=== PATIENT | female | born 1980 | race Caucasian/White ===

== ENCOUNTER → 2020-12-23 | Outpatient (CLI) | payer BC ==
[2020-12-23 13:47] VITALS: BP 135/85; PULSE 86; TEMP 98.3; BMI 52.9
--- NOTE | 2020-12-23 14:15 | P.HPBAR ---
Bariatric H&P - History & Physicial H&P Date: 12/23/20 History & Physicial: Visit/CC: initial clinic visit Patient initial contact: Initial weight: Initial weight in pounds: Height: 5 ft 5 in Initial BMI: Last weight: Current weight: 144.242 kg Current weight in pounds: 318.00 Current BMI: 52.9 [place] body weight (based on NIH guidelines): 56.699 kg Excess body weight loss: The patient is a 40 year-old F who presents for Bariatric Assessment. Patient presents to the bariatric center for the first time. Her mother had a sleeve gastrectomy and has done quite well. She is interested in sleeve gastrectomy herself. She did go to a recent seminar. She is not interested in gastric bypass because of the long-term side potential side effects. Patient weight 318 BMI 52. Patient has no significant comorbidities thankfully. She says she may have sleep apnea but never had a test performed. No history of GERD, no DVT, no dysphagia. No prior abdominal surgeries other than 2. No known hernias. Review of Systems The patient denies any acute changes in vision or hearing, no dysphagia or odynophagia, no chest pain or shortness of breath, no dysuria or hematuria, no headache, no runny nose, no rectal bleeding or melena, no unexplained weight loss Past Medical History Past Medical History: Osteoarthritis (OA) History of Any Multi-Drug Resistant Organisms: None Reported Past Surgical History: Section Past Anesthesia/Blood Transfusion Reactions: No Reported Reaction Past Psychological History: No Psychological Hx Reported Smoking Status: Never smoker Past Alcohol Use History: None Reported Past Drug Use History: None Reported Surgical - Exam Vital Signs Temp Pulse BP 98.3 F 86 135/85 12/23/20 13:36 12/23/20 13:36 12/23/20 13:36 Physical exam: General: Well-developed, well-nourished HEENT: Normocephalic, sclerae nonicteric Abdomen: Nontender, nondistended Extremities: No edema Neuro: Alert and oriented Bariatric Assessment & Plan (1) Morbid obesity with BMI of 50.0-59.9, adult Narrative/Plan: 40-year-old female with morbid obesity. BMI 52. We'll proceed with upper endoscopy as preoperative assessment for anticipated sleeve gastrectomy. Risks and benefits of both sleeve gastrectomy and gastric bypass along with average expected weight loss discussed. She is agreeable to proceed with sleeve gastrectomy at this time. Status: Acute Bariatric Checklist Checklist: Plan: Checklist: EGD: 1. Hiatal hernia: 2. H. Pylori: HgbA1c: Vitamin D: Smoking: Never smoker Primary care physician referral: dr castro Psychiatry clearance: Cardiology clearance: Sleep study: Diet journal: VTE risk score: VTE risk level: Rehab needs at discharge:
[2020-12-23 15:17] LABS: HCT 39.2 % (34.0-46.0); HGB 13.9 gm/dL (11.4-16.0); MCH 31.9 pg (25.0-35.0); MCHC 35.5 g/dL (31.0-37.0); Mean Platelet Volume 7.9; Platelet Count 296 k/uL (150-450); RBC 4.35 m/uL (3.80-5.40); RDW 12.6 % (11.5-15.5); WBC 8.1 k/uL (3.8-10.6)
[2020-12-24 01:32] LABS: Hemoglobin A1C 5.4 % (4.0-6.0)
[2020-12-24 03:05] LABS: African American GFR (CKD) 108.4 (60.0-200.0); Albumin 4.2 g/dL (3.80-4.90); Albumin/Globulin Ratio 1.75 (1.60-3.17); Anion Gap 9.5 mmol/L (4.00-12.00); BUN/Creat Ratio 12.5 Ratio (12.00-20.00); Calcium 9.4 mg/dL (8.7-10.3); Carbon Dioxide 23.5 mmol/L (21.6-31.8); Globulin 2.4 g/dL (1.6-3.3); Non-African American GFR(CKD) 93.5 (60.0-200.0); Potassium 4.9 mmol/L (3.5-5.5); Total Bilirubin 0.2 mg/dL (0.3-1.2); Total Protein 6.6 g/dL (6.2-8.2)
[2020-12-24 03:14] LABS: Folate, Serum 5.7 ng/mL
== END ==
LOC: BARWHC3 13:22
PROVIDERS: ATTEND Surgery
DX: E66.01 Morbid (severe) obesity due to excess calories (principal); Z68.43 Body mass index [BMI] 50.0-59.9, adult; K90.89 Other intestinal malabsorption; E55.9 Vitamin D deficiency, unspecified
CPT/HCPCS: 36415; 80053; 82306; 82607; 82746; 83036; 83540; 84425; 85027; 93005; 99203

== ENCOUNTER → 2021-01-31 | Outpatient (CLI) | payer BC ==
[2021-02-01 08:19] VITALS: BMI 51.7
== END ==
LOC: BARWHC3 08:47
PROVIDERS: ATTEND Surgery
DX: E66.01 Morbid (severe) obesity due to excess calories (principal); Z71.3 Dietary counseling and surveillance; Z68.43 Body mass index [BMI] 50.0-59.9, adult
CPT/HCPCS: 97804

== ENCOUNTER 2021-02-01 08:54 | Day surgery (SDC) | payer BC ==
[2021-01-28 11:22] VITALS: BMI 52.4
[~2021-02-01 08:54] MED LIST: LACTATED RINGERS 1,000 ML IV SCH; LIDOCAINE 1% (10MG/ML) FOR IV START INTRADERMA PRN
[2021-02-01 10:04] VITALS: RESP 16; TEMP 97.4
[2021-02-01] MEDS ORDERED: LIDOCAINE 1% (10MG/ML) FOR IV START INTRADERMA ONE (10:17)
[2021-02-01] MEDS ORDERED: PROPOFOL 10 MG/ML 20 ML VIAL IV ONE (10:56)
[2021-02-01] MEDS ORDERED: LIDOCAINE 1% INJ 10MG/ML (20 ML MDV) ONE (10:56)
--- NOTE | 2021-02-01 10:58 | P.GSHP ---
History of Present Illness H&P Date: 02/01/21 Chief Complaint: Epigastric pain, preop screening 40-year-old female here for upper endoscopy. Patient with some mild rare epigastric discomfort. No reflux symptoms. No dysphagia. Patient being evaluated for sleeve gastrectomy. Past Medical History Past Medical History: Osteoarthritis (OA) History of Any Multi-Drug Resistant Organisms: None Reported Past Surgical History: Section Additional Past Surgical History / Comment(s): 2 c sect Past Anesthesia/Blood Transfusion Reactions: Previous Problems w/ Anesthesia Additional Past Anesthesia/Blood Transfusion Reaction / Comment(s): spinal didn't work for last c section 19 yrs ago Smoking Status: Never smoker - Past Family History Mother Family Medical History: Cancer Additional Family Medical History / Comment(s): breast Medications and Allergies Home Medications Medication Instructions Recorded Confirmed Type Ibuprofen [Motrin] 600 mg PO DIRECTED 12/23/20 02/01/21 History Ergocalciferol [Vitamin D2 (1250 50,000 unit PO WEEKLY 12/28/20 02/01/21 History Mcg = 30275 Iu)] Iron 64 mg PO DAILY 12/28/20 02/01/21 History Allergies Allergy/AdvReac Type Severity Reaction Status Date / Time No Known Allergies Allergy Verified 02/01/21 10:04 Surgical - Exam Vital Signs Temp Pulse Resp BP Pulse Ox 97.4 F L 69 16 129/74 97 02/01/21 09:58 02/01/21 09:58 02/01/21 09:58 02/01/21 09:58 02/01/21 09:58 Physical exam: General: Well-developed, well-nourished HEENT: Normocephalic, sclerae nonicteric Abdomen: Nontender, nondistended Extremities: No edema Neuro: Alert and oriented Assessment and Plan (1) Epigastric pain Narrative/Plan: Will proceed with upper endoscopy Current Visit: Yes Status: Acute Code(s): R10.13 - EPIGASTRIC PAIN SNOMED Code(s): 67415766
--- NOTE | 2021-02-01 11:13 | P.PCN ---
Date of Procedure: 02/01/21 Procedure(s) Performed: Preoperative Dx: Epigastric pain, preoperative evaluation Postoperative Dx: Minimal gastritis Procedure: EGD with Bx Anesthesia: Sedation Endoscopist: Dr. Velazquez Specimens: Antrum Endoscopic Procedure: The patient was on the endoscopy table in the left decubitus position. The Olympus gastroscope was inserted into the oropharynx and passed under direct visualization to the region of the third portion of the duodenum. From that point the scope was slowly withdrawn inspecting all surfaces carefully. There were no neoplastic inflammatory or polypoid lesions throughout the duodenum. The pylorus was widely patent. The stomach was carefully inspected. There was minimal gastritis present. A biopsy of the antrum took place to rule out H. pylori. Retroflexion revealed a normal hiatus. The esophagus was then carefully examined. There were no neoplastic inflammatory or polypoid lesions throughout the visualized esophagus. The patient was then taken to the recovery room in stable condition per anesthesia guidelines. Recommendations: Await biopsy results. Follow-up bariatric clinic
[2021-02-01 11:51] VITALS: BP 103/70; PULSE 53
== END 2021-02-01 12:20 | disposition home or self-care (01) ==
LOC: ORWHC2ENDO 08:54
PROVIDERS: ATTEND Surgery
DX: K29.50 Unspecified chronic gastritis without bleeding (principal); M19.90 Unspecified osteoarthritis, unspecified site; Z98.891 History of uterine scar from previous surgery; Z01.818 Encounter for other preprocedural examination; E66.9 Obesity, unspecified; Z68.43 Body mass index [BMI] 50.0-59.9, adult; Z80.3 Family history of malignant neoplasm of breast; Z79.1 Long term (current) use of non-steroidal anti-inflammatories (NSAID)
CPT/HCPCS: 81025; 88305; 43239; J2001; J2704

== ENCOUNTER → 2021-02-15 | Outpatient (CLI) | payer BC ==
--- NOTE | 2021-02-15 14:52 | P.BASOAP ---
Subjective Progress Note Date: 02/15/21 Principal diagnosis: Morbid obesity Patient returns after recent upper endoscopy. Patient had EGD showing mild gastritis. No changes to her history and physical. Patient remains interested in sleeve gastrectomy. Her mother had a sleeve gastrectomy in the past. Objective - Vital Signs Vital signs: Vital Signs Temp 97.9 F 02/15/21 14:12 Pulse 92 02/15/21 14:12 Resp 16 02/15/21 14:12 BP 123/87 02/15/21 14:12 Pulse Ox Intake & Output 02/14/21 02/15/21 02/15/21 18:59 06:59 18:59 Weight 141.521 kg - Exam Abdomen: Soft, nontender, nondistended Assessment/Plan (1) Morbid obesity with BMI of 50.0-59.9, adult Narrative/Plan: Patient remains interested in sleeve gastrectomy. We reviewed the surgical consent form and also the the risk-benefit calculator in detail. All questions answered. We'll schedule. The risks of bleeding, infection, stenosis, stricture, leak, abscess, fistula formation, peritonitis, poor weight loss, reflux, vomiting, conversion to an open procedure, aborting sleeve gastrectomy, MA, PE, DVT, and were discussed. The patient understands and wishes to proceed. Plan: Date: 02/15/21 Initial Weight: 141.521 kg Initial BMI: 51.9 Current Weight: 141.521 kg Current BMI: 51.9 Type of Surgery: Total Volume in Band: Previous Volume: Volume Removed: Volume Added: Band Size:
== END ==
CPT/HCPCS: 99211

== ENCOUNTER → 2021-03-10 | Outpatient (CLI) | payer BC ==
[2021-03-10 13:24] LABS: Basophils # (A) 0.1 k/uL (0-0.2); Basophils % (A) 1 %; Eosinophils # (A) 0.2 k/uL (0-0.7); Eosinophils % (A) 3 %; HCT 40.9 % (34.0-46.0); HGB 13.5 gm/dL (11.4-16.0); Lymphocytes # (A) 1.6 k/uL (1.0-4.8); Lymphocytes % (A) 22 %; MCH 30.1 pg (25.0-35.0); MCV 91.3 fL (80.0-100.0); Mean Platelet Volume 7.5; Monocytes # (A) 0.4 k/uL (0-1.0); Monocytes % (A) 5 %; Neutrophils # (A) 4.9 k/uL (1.3-7.7); Neutrophils % (A) 68 %; Platelet Count 305 k/uL (150-450); RBC 4.48 m/uL (3.80-5.40); RDW 13.2 % (11.5-15.5); WBC 7.3 k/uL (3.8-10.6)
[2021-03-10 13:39] LABS: ALT 15 U/L (4-34); AST 22 U/L (14-36); African American GFR (CKD) >90 (>60 ml/min/1.73 sqM); Albumin 3.7 g/dL (3.5-5.0); Alkaline Phosphatase 55 U/L (38-126); Anion Gap 6 mmol/L; Blood Urea Nitrogen 15 mg/dL (7-17); Calcium 9.1 mg/dL (8.4-10.2); Carbon Dioxide 27 mmol/L (22-30); Chloride 105 mmol/L (98-107); Glucose 86 mg/dL (74-99); Non-African American GFR(CKD) >90 (>60 ml/min/1.73 sqM); Potassium 4.6 mmol/L (3.5-5.1); Sodium 138 mmol/L (137-145); Total Bilirubin 0.4 mg/dL (0.2-1.3); Total Protein 6.6 g/dL (6.3-8.2)
== END | disposition home or self-care (01) ==
LOC: LABPAT 12:34
PROVIDERS: ATTEND Surgery
DX: Z01.812 Encounter for preprocedural laboratory examination (principal)
CPT/HCPCS: 36415; 80053; 85025

== ENCOUNTER 2021-03-28 12:35 | Inpatient (IN) | payer BC ==
[2021-04-04] MEDS ORDERED: ENOXAPARIN 40 MG/0.4 ML SYRINGE SQ PRN (05:00)
[2021-04-04] MEDS ORDERED: ceFAZolin 3 GM in SODIUM CHLORIDE 0.9% 100 ML IVPB PRN (05:00)
[2021-04-04] MEDS ORDERED: SCOPOLAMINE 1.5MG/72HR PATCH TRANSDERM ONE (06:06)
[2021-04-04] MEDS ORDERED: DEXAMETHASONE SOD PHOSPHATE 4 MG/ML 1 ML VIAL IV ONE (06:06)
[2021-04-04] MEDS ORDERED: MIDAZOLAM 2 MG/2 ML VIAL IV PRN (06:06)
[2021-04-04] MEDS ORDERED: ONDANSETRON 4 MG/2 ML VIAL IVP ONE ×2 (06:06→16:19)
[2021-04-04] MEDS ORDERED: HYDROmorphone 0.5 MG/0.5 ML SYRINGE IVP PRN (06:06)
[2021-04-04] MEDS ORDERED: LIDOCAINE 1% (10MG/ML) FOR IV START INTRADERMA PRN (06:06)
[2021-04-04] MEDS ORDERED: ONDANSETRON 4 MG/2 ML VIAL IVP PRN (06:06)
--- NOTE | 2021-04-04 07:59 | P.GSHP ---
History of Present Illness H&P Date: 04/04/21 Chief Complaint: Morbid obesity 40-year-old female here today for elective sleeve gastrectomy. Patient was seen in the office several times over the last few months. Patient has suffered with her weight for the majority of her life. She was tried a variety of different weight loss methods without success. Denies reflux. No history of DVT or dysphasia. Nonsmoker. BMI 52 when initially seen. More recently BMI is 49. Recent EGD showed minimal gastritis. Past Medical History Past Medical History: Osteoarthritis (OA) History of Any Multi-Drug Resistant Organisms: None Reported Past Surgical History: Section Additional Past Surgical History / Comment(s): EGD Past Anesthesia/Blood Transfusion Reactions: No Reported Reaction Smoking Status: Never smoker - Past Family History Mother Family Medical History: No Reported History Medications and Allergies Home Medications Medication Instructions Recorded Confirmed Type Ergocalciferol [Vitamin D2 (1250 50,000 unit PO WEEKLY 12/28/20 03/31/21 History Mcg = 85225 Iu)] Iron 64 mg PO DAILY 12/28/20 03/31/21 History Allergies Allergy/AdvReac Type Severity Reaction Status Date / Time No Known Allergies Allergy Verified 03/31/21 11:57 Surgical - Exam Physical exam: General: Well-developed, well-nourished HEENT: Normocephalic, sclerae nonicteric Abdomen: Nontender, nondistended Extremities: No edema Neuro: Alert and oriented Assessment and Plan (1) Morbid obesity with BMI of 50.0-59.9, adult Narrative/Plan: 40-year-old female with morbid obesity. We'll proceed with elective laparoscopic sleeve gastrectomy at this time. The risks of bleeding, infection, stenosis, stricture, leak, abscess, fistula formation, peritonitis, poor weight loss, reflux, vomiting, conversion to an open procedure, aborting sleeve gastrectomy, [place], PE, DVT, and were discussed. The patient understands and wishes to proceed. Status: Acute Code(s): E66.01 - MORBID (SEVERE) OBESITY DUE TO EXCESS CALORIES; Z68.43 - BODY MASS INDEX [BMI] 50.0-59.9, ADULT SNOMED Code(s): 910266406
[2021-04-04] MEDS: LACTATED RINGERS 1,000 ML IV SCH (10:53)
[2021-04-04] MEDS ORDERED: METHYLENE BLUE 3 MG in DEXTROSE 5% IN WATER 500 ML IRRIGATION ONE ×4 (13:15)
[2021-04-04] MEDS ORDERED: SUCCINYLCHOLINE CHLORIDE VIAL 200 MG/10 ML VIAL IV ONE (13:26)
[2021-04-04] MEDS ORDERED: HYDROmorphone (PF) 1 MG/ML ONE (13:26)
[2021-04-04] MEDS ORDERED: PHENYLEPHRINE-0.9% NACL SYG 1,000 MCG/10 ML SYRINGE ONE (13:26)
[2021-04-04] MEDS ORDERED: fentaNYL (PF) 50 MCG/ML 2 ML AMP ONE (13:26)
[2021-04-04] MEDS ORDERED: GLYCOPYRROLATE 0.2 MG/ML 2 ML VIAL ONE (13:26)
[2021-04-04] MEDS ORDERED: ROCURONIUM 10 MG/ML (5 ML VIAL) IV ONE (13:26)
[2021-04-04] MEDS ORDERED: LIDOCAINE 1% INJ 10MG/ML (20 ML MDV) ONE (13:26)
[2021-04-04] MEDS ORDERED: MIDAZOLAM 2 MG/2 ML VIAL ONE (13:26)
[2021-04-04] MEDS ORDERED: NEOSTIGMINE 1 MG/ML 10 ML VIAL ONE (13:26)
[2021-04-04] MEDS ORDERED: PROPOFOL 10 MG/ML 20 ML VIAL IV ONE (13:26)
[2021-04-04] MEDS ORDERED: BUPIVACAINE (PF) 0.25% 30 ML VIAL SQ ONE ×2 (13:55)
[2021-04-04] MEDS ORDERED: LACTATED RINGERS 1,000 ML IV ONE (15:10)
[2021-04-04] MEDS ORDERED: diphenhydrAMINE 50 MG/ML 1 ML VIAL IVP PRN (15:20)
[2021-04-04] MEDS ORDERED: NALOXONE 0.4 MG/ML 1 ML VIAL IV PRN (15:20)
[2021-04-04] MEDS ORDERED: HYOSCYAMINE ORAL DROPS 1.875 MG/15 ML BOTTLE PO PRN (15:20)
[2021-04-04] MEDS ORDERED: HYDROmorphone 1 MG/ML 1 ML SYRINGE IVP PRN (15:20)
[2021-04-04] MEDS ORDERED: SIMETHICONE 40 MG/0.6 ML DROPS 2,000 MG/30 ML BOTTLE PO PRN (15:20)
--- NOTE | 2021-04-04 15:23 | P.OP ---
Date of Procedure: 04/04/21 Procedure(s) Performed: PREOPERATIVE DIAGNOSIS: Morbid obesity POSTOPERATIVE DIAGNOSIS: Same PROCEDURE: Laparoscopic sleeve gastrectomy SURGEON: Caroline EBL: Minimal ANESTHESIA: General COMPLICATIONS: None OPERATIVE PROCEDURE: Patient was placed in the operating table in the supine position. She was placed under general anesthesia at that time. The abdomen was prepped and draped in sterile fashion after the patient was placed in lithotomy. A 5 mm optical trocar was used to enter the abdominal cavity in the left upper quadrant. Insufflation took place to 15 millimeters mercury. An additional right subxiphoid 5 mm trocar was then placed under direct visualization and then removed. 2 additional 5 mm trochars were placed in the right upper quadrant and left upper quadrant under direct visualization and a 15 mm trocar in the supraumbilical location. The liver was retracted using a medium Timothy liver retractor through the right subxiphoid trocar site. The hiatus was inspected. The patient had no visible hiatal hernia At that point I moved to the mid aspect of the greater curvature the stomach. The short gastric vasculature was divided using a LigaSure device proximally. I then switched and divided the short gastrics distally to a 3-4 cm from the pylorus. The dissection took place up to the left diaphragmatic crura at that point. The posterior short gastrics were likewise divided using the LigaSure device. Once the stomach was fully mobilized the blunt tipped 40-Upper Sorbian bougie dilator was advanced into the stomach and advanced all the way to the prepyloric location. A black echelon 60 stapler with echelon Endopath staple line reinforcement was utilized and fired tangentially across the antrum taking care to avoid narrowing at the incisura angularis. Subsequent firings of the stapler took place. A total of 5 green echelon 60 staplers with echelon Endopath staple line reinforcement took place proximally staying on the outer edge of our dilator. Once we reached the most proximal portion of the stomach a single firing of the gold echelon [address] The oral gastric tube was reinserted. The stomach was insufflated with approximately 100 mL of methylene blue. No evidence of leak or obstruction was seen. Tisseel fibrin glue was used along the length of the staple line. The stomach remnant was removed from the 15 mm trocar site without difficulty. The fascia at the 15 more site was closed using interrupted 0 Vicryl sutures with the laparoscopic suture passer and Romel Arlene technique. The insufflation was evacuated. The skin at all 5 incisions were closed using 4-0 Monocryl sutures. Skin glue was then applied. DISPOSITION: Stable to recovery room
[2021-04-04] MEDS: ACETAMINOPHEN IV (For NPO) 1,000 MG in EMPTY BAG 1 BAG IVPB SCH ×2 (17:53→23:24)
[2021-04-04] MEDS: ONDANSETRON 4 MG/2 ML VIAL IVP PRN (19:36)
[2021-04-04] MEDS: ALBUTEROL NEBULIZED 2.5 MG/3 ML INHALATION SCH ×2 (20:31→21:29)
[2021-04-04] MEDS: 0.9% NACL WITH KCL 20 MEQ/L 1,000 ML IV SCH ×2 (21:48→23:25)
[2021-04-04] MEDS: ENOXAPARIN 40 MG/0.4 ML SYRINGE SQ SCH (23:23)
--- NOTE | 2021-04-05 01:09 | P.CONS ---
History of Present Illness - Reason for Consult Consult date: 04/04/21 Medical Management - Chief Complaint Status post sleeve gastrectomy - History of Present Illness Patient is a 40-year-old female with a known history of morbid obesity with BMI 48.1, osteoarthritis and history of EGD and was admitted to the hospital for elective sleeve gastrectomy. Patient. Conservative measures for weight loss. Patient had EGD showed minimal gastritis. Patient tolerated the procedure well. Currently pain is controlled. No complaints of nausea or vomiting or abdominal pain. Patient does have mild lightheadedness. No complaints of fever or chills. No chest pain or shortness of breath. No leg swelling. Review of Systems Constitutional: Patient denies any fever or chills . No generalized weakness or weight loss. Abdomen: Patient denied nausea vomiting and diarrhea and abdominal pain. Cardiovascular: Patient denies any chest pain or short of breath no palpitations. Respiratory: patient denied any cough or sputum production. No shortness of breath Neurologic: Patient denied any numbness or tingling headache. Musculoskeletal: Patient denies any complaints of joint swelling or deformity. Skin: Negative Psychiatric: Negative Endocrine: No heat or cold intolerance. No recent weight gain. Genitourinary: No dysuria or hematuria. All other 14 point ROS negative except the above Past Medical History Past Medical History: Osteoarthritis (OA) History of Any Multi-Drug Resistant Organisms: None Reported Past Surgical History: Section Additional Past Surgical History / Comment(s): EGD Past Anesthesia/Blood Transfusion Reactions: No Reported Reaction Past Psychological History: No Psychological Hx Reported Smoking Status: Never smoker Past Alcohol Use History: None Reported Past Drug Use History: None Reported - Past Family History Mother Family Medical History: No Reported History Medications and Allergies Home Medications Medication Instructions Recorded Confirmed Type Ergocalciferol [Vitamin D2 (1250 50,000 unit PO WEEKLY 12/28/20 04/04/21 History Mcg = 37912 Iu)] Iron 64 mg PO DAILY 12/28/20 04/04/21 History Loratadine [Claritin] 10 mg PO DAILY 04/04/21 04/04/21 History Allergies Allergy/AdvReac Type Severity Reaction Status Date / Time No Known Allergies Allergy Verified 04/04/21 10:57 Physical Exam Vitals: Vital Signs Temp Pulse Pulse Pulse Resp BP BP 04/04/21 21:46 04/04/21 19:04 97.6 F 62 14 106/67 04/04/21 18:05 67 107/67 04/04/21 17:50 71 112/71 04/04/21 17:35 70 118/74 04/04/21 17:20 72 111/72 04/04/21 16:50 98.0 F 65 16 107/62 04/04/21 16:43 72 16 112/73 04/04/21 16:36 63 16 112/77 04/04/21 16:22 75 16 108/56 04/04/21 16:09 79 16 127/65 04/04/21 15:54 79 16 123/61 04/04/21 15:40 61 16 119/57 04/04/21 15:24 97.4 F L 62 12 121/62 04/04/21 12:10 04/04/21 12:09 04/04/21 11:02 97.2 F L 93 18 125/56 Pulse Ox 04/04/21 21:46 91 L 04/04/21 19:04 95 04/04/21 18:05 95 04/04/21 17:50 94 L 04/04/21 17:35 96 04/04/21 17:20 94 L 04/04/21 16:50 94 L 04/04/21 16:43 94 L 04/04/21 16:36 94 L 04/04/21 16:22 97 04/04/21 16:09 95 04/04/21 15:54 98 04/04/21 15:40 99 04/04/21 15:24 100 04/04/21 12:10 95 04/04/21 12:09 91 L 04/04/21 11:02 96 Intake and Output 04/04/21 04/04/21 04/05/21 14:59 22:59 06:59 Intake Total 1101 0 Output Total 5 Balance 1101 -5 Intake: IV 1101 0 Output: Estimated Blood Loss 5 Other: # Voids 1 Weight 131.2 kg 131.2 kg PHYSICAL EXAMINATION: Patient is lying in the bed comfortably, no acute distress, awake alert and oriented.Morbid obesity. HEENT: Normocephalic. Neck is supple. Pupils reactive. Nostrils clear. Oral cavity is moist. Neck reveals no JVD, carotid bruits, or thyromegaly. CHEST EXAMINATION: Trachea is central. Symmetrical expansion.Bibasilar diminished sounds Lung pierre clear to auscultation and percussion. CARDIAC: Normal S1, S2 with no gallops. No murmurs ABDOMEN: Soft. Bowel sounds normal. No organomegaly. No abdominal bruits. Extremities: reveal no edema. No clubbing or cyanosis Neurologically awake, alert, oriented x3 with well-coordinated movements. No focal deficits noted Skin: No rash or skin lesions. Psychiatric: Coperative. Nonsuicidal Musculoskeletal: No joint swelling or deformity. Normal range of motion. Assessment and Plan Assessment: Status post laparoscopic sleeve gastrectomy. Postoperative day 0. Morbid obesity BMI 48.1. Initially was 52. Mild gastritis. Osteoarthritis History of DVT prophylaxis with Lovenox. Plan: Patient will be started on IV hydration and symptomatic management for nausea. Continue with pain management and bowel regimen. GI and DVT prophylaxis. Continue current management and further recommendations based on clinical course. Follow-up CBC and BMP tomorrow. Thank you for your consult.
[2021-04-05] MEDS: LACTATED RINGERS 1,000 ML IV SCH (03:01)
[2021-04-05] MEDS: 0.9% NACL WITH KCL 20 MEQ/L 1,000 ML IV SCH (04:55)
[2021-04-05] MEDS: ACETAMINOPHEN IV (For NPO) 1,000 MG in EMPTY BAG 1 BAG IVPB SCH ×4 (04:56→22:42)
[2021-04-05] MEDS: ALBUTEROL NEBULIZED 2.5 MG/3 ML INHALATION SCH ×4 (07:20→20:36)
[2021-04-05] MEDS: PANTOPRAZOLE 40 MG/10 ML VIAL IV SCH (07:45)
[2021-04-05] MEDS: ONDANSETRON 4 MG/2 ML VIAL IVP PRN (08:50)
--- NOTE | 2021-04-05 09:36 | FL ---
EXAMINATION TYPE: FL UGI DATE OF EXAM: 04/05/2021 CLINICAL HISTORY: Status post gastric sleeve Contrast: Omnipaque 350 50 mL The patient ingested contrast without difficulty or delay. Noted are postsurgical changes of gastric sleeve. There is no evidence for leak or obstruction. Contrast is noted within the duodenum. IMPRESSION: Post-surgical change of gastric sleeve without evidence for obstruction or leak at this point in time.
[2021-04-05] MEDS ORDERED: SCOPOLAMINE 1.5MG/72HR PATCH TRANSDERM SCH (11:00)
--- NOTE | 2021-04-05 11:03 | P.PN ---
<Anne Thayer - Last Filed: 04/05/21 10:57> Subjective Progress Note Date: 04/05/21 CHIEF COMPLAINT: Morbid obesity HISTORY OF PRESENT ILLNESS: Patient is postop day #1 status post laparoscopic sleeve gastrectomy. Patient denies any pain. She is complaining of nausea and did have 2 episodes of vomiting. The first episode was early this morning and the second episode was after drinking the barium for her upper GI. Upper GI shows postsurgical change of gastric sleeve without evidence for obstruction or leak. Afebrile. Labs pending PHYSICAL EXAM: VITAL SIGNS: Reviewed. GENERAL: Well-developed in no acute distress. HEENT: No sclera icterus. Extraocular movements grossly intact. Moist buccal mucosa. Head is atraumatic, normocephalic. ABDOMEN: Soft. Nondistended. Incision sites clean dry and intact NEUROLOGIC: Alert and oriented. Cranial nerves II through XII grossly intact. ASSESSMENT: 1. Morbid obesity status post laparoscopic sleeve gastrectomy PLAN: -Add scopolamine patch for nausea and vomiting -Continue Zofran as needed -Start bariatric clear liquid diet -Continue IV fluids -Continue pain medication as needed -Encouraged patient ambulates -GI prophylaxis Protonix and DVT prophylaxis Lovenox Physician Repair Department Supervisor note has been reviewed by physician. Signing provider agrees with the documented findings, assessment, and plan of care. Objective - Vital Signs Vital signs: Vital Signs Temp 97.7 F 04/05/21 07:23 Pulse 68 04/05/21 07:31 Resp 16 04/05/21 07:31 BP 157/78 04/05/21 07:23 Pulse Ox 94 L 04/05/21 07:23 Intake & Output 04/04/21 04/05/21 04/05/21 18:59 06:59 18:59 Intake Total 1101 Output Total 5 Balance 1096 Weight 131.2 kg 131.2 kg Intake: IV 1101 Output: Estimated Blood Loss 5 Other: # Voids 1 <Capo Velazquez - Last Filed: 04/05/21 12:20> Subjective As above. Patient with some nausea and intermittent vomiting this morning. Pain is been well-controlled. Upper GI shows no evidence of leak. Await morning labs. Continue bariatric clear liquids. Possible discharge tomorrow. Objective - Vital Signs Vital signs: Vital Signs Temp 97.7 F 04/05/21 07:23 Pulse 67 04/05/21 08:00 Resp 16 04/05/21 08:00 BP 157/78 04/05/21 07:23 Pulse Ox 94 L 04/05/21 07:23 Intake & Output 04/04/21 04/05/21 04/05/21 18:59 06:59 18:59 Intake Total 1101 Output Total 5 Balance 1096 Weight 131.2 kg 131.2 kg Intake: IV 1101 Output: Estimated Blood Loss 5 Other: # Voids 1 Assessment and Plan (1) Morbid obesity with BMI of 50.0-59.9, adult Current Visit: No Status: Acute Code(s): E66.01 - MORBID (SEVERE) OBESITY DUE TO EXCESS CALORIES; Z68.43 - BODY MASS INDEX [BMI] 50.0-59.9, ADULT SNOMED Code(s): 040032024
[2021-04-05] MEDS: ENOXAPARIN 40 MG/0.4 ML SYRINGE SQ SCH ×2 (12:05→22:43)
[2021-04-05 12:55] LABS: Basophils # (A) 0.01 X 10*3/uL (0.00-0.10); Basophils % (A) 0.1 %; Eosinophils # (A) 0 X 10*3/uL (0.04-0.35); Eosinophils % (A) 0 %; HCT 41.9 % (37.2-46.3); HGB 13.5 g/dL (12.0-15.0); Lymphocytes # (A) 1.06 X 10*3/uL (0.90-5.00); Lymphocytes % (A) 14.9 %; MCH 30.6 pg (27.0-32.0); MCHC 32.2 g/dL (32.0-37.0); Mean Platelet Volume 12.1 fL (9.5-12.2); Monocytes # (A) 0.72 X 10*3/uL (0.20-1.00); Monocytes % (A) 10.1 %; Neutrophils % (A) 74.6 %; Platelet Count 236 X 10*3/uL (140-440); RBC 4.41 X 10*6/uL (4.10-5.20); RDW 12.9 % (11.5-14.5); WBC 7.11 X 10*3/uL (4.50-10.00)
[2021-04-05 14:02] VITALS: BMI 48.1
[2021-04-05] MEDS: 1: MVI, ADULT NO.4 WITH VIT K 10 ML, THIAMINE 100 MG, FOLIC ACID 1 MG, POTASSIUM CHLORID IV SCH ×12 (14:09→20:46)
[2021-04-05 16:34] LABS: Calcium 8.6 mg/dL (8.7-10.3); Non-African American GFR(CKD) 115.6 (60.0-200.0); Phosphorus 3.2 mg/dL (2.4-5.1)
[2021-04-05] MEDS: KETOROLAC 15 MG/ML 1 ML VIAL IVP SCH ×2 (17:23→22:43)
[2021-04-06] MEDS: ACETAMINOPHEN IV (For NPO) 1,000 MG in EMPTY BAG 1 BAG IVPB SCH (07:41)
[2021-04-06] MEDS: 1: MVI, ADULT NO.4 WITH VIT K 10 ML, THIAMINE 100 MG, FOLIC ACID 1 MG, POTASSIUM CHLORID IV SCH ×6 (07:41)
[2021-04-06] MEDS: KETOROLAC 15 MG/ML 1 ML VIAL IVP SCH ×2 (07:42→11:35)
[2021-04-06] MEDS: LACTATED RINGERS 1,000 ML IV SCH (07:42)
[2021-04-06 07:52] VITALS: BP 116/73; RESP 16; TEMP 98.2
[2021-04-06] MEDS: ALBUTEROL NEBULIZED 2.5 MG/3 ML INHALATION SCH ×2 (07:56→11:54)
[2021-04-06] MEDS ORDERED: bisacodyL 5 MG TABLET.DR PO PRN (08:00)
[2021-04-06] MEDS ORDERED: ACETAMINOPHEN TAB 500 MG TAB PO PRN (09:22)
[2021-04-06] MEDS ORDERED: LORATADINE 10 MG TAB PO SCH (09:30)
[2021-04-06] MEDS: PANTOPRAZOLE 40 MG/10 ML VIAL IV SCH (09:33)
[2021-04-06] MEDS: ENOXAPARIN 40 MG/0.4 ML SYRINGE SQ SCH (12:01)
[2021-04-06 12:04] VITALS: PULSE 77
--- NOTE | 2021-04-06 13:29 | P.DS ---
<Anne Thayer - Last Filed: 04/06/21 13:27> Providers Expected date of discharge: 04/06/21 Hospital Course: Discharge diagnosis 1. Morbid obesity status post laparoscopic sleeve gastrectomy Hospital course This is a 40-year-old female with a known history of morbid obesity. She is status post laparoscopic sleeve gastrectomy. She tolerated surgery well. Her pain is controlled. She is tolerating a bariatric clear liquid diet. Upper GI showed no evidence of leak or obstruction. She's afebrile. She is having flatus. She's up and ambulating. She is urinating without difficulty. She is stable for discharge. Please free to chart for any further details. Physician Manufacturing Recruiter note has been reviewed by physician. Signing provider agrees with the documented findings, assessment, and plan of care. Patient Condition at Discharge: Stable Plan - Discharge Summary Discharge Rx Participant: Yes New Discharge Prescriptions: New Omeprazole [PriLOSEC] 40 mg PO DAILY #30 capsule. Ondansetron Odt [Zofran Odt] 4 mg PO Q8HR PRN #9 tab PRN Reason: Nausea bisacodyL [Dulcolax] 5 mg PO DAILY PRN #10 tablet. PRN Reason: Constipation Simethicone 40 mg/0.6 ml Drops [Mylicon Drops] 40 mg PO PCHS PRN #30 ml PRN Reason: Gas Acetaminophen Tab [Tylenol Tab] 650 mg PO Q4H PRN #30 tablet PRN Reason: Pain Continue Loratadine [Claritin] 10 mg PO DAILY No Action Iron 64 mg PO DAILY Ergocalciferol [Vitamin D2 (1250 Mcg = 31557 Iu)] 50,000 unit PO WEEKLY Discharge Medication List Ergocalciferol [Vitamin D2 (1250 Mcg = 13392 Iu)] 50,000 unit PO WEEKLY 12/28/20 [History] Iron 64 mg PO DAILY 12/28/20 [History] Loratadine [Claritin] 10 mg PO DAILY 04/04/21 [History] Acetaminophen Tab [Tylenol Tab] 650 mg PO Q4H PRN #30 tablet 04/06/21 [Rx] Omeprazole [PriLOSEC] 40 mg PO DAILY #30 capsule. 04/06/21 [Rx] Ondansetron Odt [Zofran Odt] 4 mg PO Q8HR PRN #9 tab 04/06/21 [Rx] Simethicone 40 mg/0.6 ml Drops [Mylicon Drops] 40 mg PO PCHS PRN #30 ml 04/06/21 [Rx] bisacodyL [Dulcolax] 5 mg PO DAILY PRN #10 tablet. 04/06/21 [Rx] Follow [facility]Ref[facility] [place] [place] [facility] Patient Instructions/Handouts: Nutrition after Bariatric Surgery (DC), Laparoscopic Sleeve Gastrectomy (DC) Activity/Diet/Wound Care/Special Instructions: No driving while taking [place] No lifting over 10 pounds You may shower. No soaking or tub baths for 2 weeks Very light activity until you are reevaluated at your follow up appointment with your surgeon Hold iron and vitamin D vitamin until seen by surgeon Discharge Disposition: HOME SELF-CARE <Capo Velazquez - Last Filed: 04/06/21 19:14> Providers Date of admission: 04/04/21 10:32 Attending physician: Capo Velazquez Consults: 04/04/21 15:21 Consult Physician Routine Consulting Provider: Carri Murphy Consult Reason/Comments: Medical management Do you want consulting provider notified?: Yes Primary care physician: Raquel Alcaraz - Discharge Diagnosis(es) (1) Morbid obesity with BMI of 50.0-59.9, adult Status: Acute Hospital Course: As above. Patient doing well today. May discharge. Follow-up one week.
--- NOTE | 2021-04-06 16:17 | P.PN ---
Subjective Progress Note Date: 04/06/21 - Reason for Consult Consult date: 04/04/21 Medical Management - Chief Complaint Status post sleeve gastrectomy - History of Present Illness Patient is a 40-year-old female with a known history of morbid obesity with BMI 48.1, osteoarthritis and history of EGD and was admitted to the hospital for elective sleeve gastrectomy. Patient. Conservative measures for weight loss. Patient had EGD showed minimal gastritis. Patient tolerated the procedure well. Currently pain is controlled. No complaints of nausea or vomiting or abdominal pain. Patient does have mild lightheadedness. No complaints of fever or chills. No chest pain or shortness of breath. No leg swelling. 04/06/2021 Patient is seen and evaluated in follow-up this morning with no acute overnight issues. Patient is tolerating diet and reports to passing gas with no bowel movement as of yet. Patient denies any nausea or vomiting. Patient has been up and walking with no difficulties. Patient states she is scheduled to be disc harged today. Review of systems: Constitutional: No reports of fatigue, fever, or chills Cardiovascular: No reports of chest pain or palpitations Respiratory: No reports of shortness of breath or cough GI: No reports of nausea, vomiting, or diarrhea : No reports of dysuria or retention Neurovascular: No reports of weakness or numbness All medications have been reviewed Objective - Vital Signs Vital signs: Vital Signs Temp 98.2 F 04/06/21 07:51 Pulse 77 04/06/21 12:04 Resp 16 04/06/21 12:04 BP 116/73 04/06/21 07:51 Pulse Ox 96 04/06/21 07:51 Intake & Output 04/05/21 04/06/21 04/06/21 18:59 06:59 18:59 Weight 131.2 kg Other: # Voids 3 - Exam Patient is sitting up in the chair, no acute distress, awake alert and oriented. Morbid obesity. HEENT: Normocephalic. Neck is supple. Pupils reactive. Nostrils clear. Oral cavity is moist. Neck reveals no JVD, carotid bruits, or thyromegaly. CHEST EXAMINATION: Trachea is central. Symmetrical expansion. Bibasilar diminished sounds. Lung pierre clear to auscultation and percussion. CARDIAC: Normal S1, S2 with no gallops. No murmurs ABDOMEN: Soft. Bowel sounds normal. No organomegaly. No abdominal bruits. Extremities: reveal no edema. No clubbing or cyanosis Neurologically awake, alert, oriented x3 with well-coordinated movements. No focal deficits noted Skin: No rash or skin lesions. Psychiatric: Cooperative. Non-suicidal Musculoskeletal: No joint swelling or deformity. Normal range of motion. - Labs CBC & Chem 7: 04/05/21 07:06 04/05/21 07:06 Labs: Abnormal Lab Results - Last 24 Hours (Table) 04/05/21 Range/Units 07:06 Carbon Dioxide 16.0 L (21.6-31.8) mmol/L Anion Gap 13.00 H (4.00-12.00) mmol/L BUN 8.0 L (9.0-27.0) mg/dL Calcium 8.6 L (8.7-10.3) mg/dL Assessment and Plan Assessment: Status post laparoscopic sleeve gastrectomy. Postoperative day 1. Morbid obesity BMI 48.1. Initially was 52. Mild gastritis. Osteoarthritis History of DVT prophylaxis with Lovenox GI prophylaxis Full code Plan: Patient was continued on symptomatic management for nausea. Patient is tolerating diet and no further reports of nausea or vomiting noted. Patient has been up and walking and reports to passing gas but no bowel movement as of yet. Continue with pain management and bowel regimen. GI and DVT prophylaxis. Continue current management and further recommendations based on clinical course. Patient is anticipating discharge by surgery services today. Will continue to follow with surgery during hospitalization. Thank you for this consultation.
== END 2021-04-06 14:33 | disposition home or self-care (01) | DRG 621 ==
LOC: 2ORMAIN 04-04 10:32 → 4SSUR 04-04 16:11
PROVIDERS: ADMIT Surgery; ATTEND Surgery
PROC: 0DB64Z3 Excision of Stomach, Percutaneous Endoscopic Approach, Vertical (ICD-10-PCS; principal; 2021-04-04 11:45)
DX: E66.01 Morbid (severe) obesity due to excess calories (principal); K29.70 Gastritis, unspecified, without bleeding; Z68.43 Body mass index [BMI] 50.0-59.9, adult; M19.90 Unspecified osteoarthritis, unspecified site; Z98.891 History of uterine scar from previous surgery
CPT/HCPCS: 74240; 80051; 81025; 82310; 82565; 83735; 84100; 84520; 85025; 88307; 94640; 94760; 94762

== ENCOUNTER → 2021-04-12 | Outpatient (CLI) | payer BC ==
[2021-04-12 13:20] VITALS: BP 100/69; PULSE 79; RESP 16; TEMP 97.5; BMI 47.2
--- NOTE | 2021-04-12 16:27 | P.BASOAP ---
Subjective Progress Note Date: 04/12/21 Principal diagnosis: Morbid obesity Patient returns 1 week post sleeve gastrectomy. Doing well since last week. She has lost 2 pounds since Sunday. Heart rate is normal. Tolerating good amounts of liquid and protein at this time. Minimal pain. Objective - Vital Signs Vital signs: Vital Signs Temp 97.5 F L 04/12/21 13:17 Pulse 79 04/12/21 13:17 Resp 16 04/12/21 13:17 BP 100/69 04/12/21 13:17 Pulse Ox Intake & Output 04/11/21 04/12/21 04/12/21 18:59 06:59 18:59 Weight 128.82 kg - Exam Abdomen: Soft, nontender, nondistended, incisions clean and dry Assessment/Plan (1) Morbid obesity with BMI of 50.0-59.9, adult Narrative/Plan: Patient doing well at this time. Continue bariatric full liquid diet. Continue ambulation. Return visit 2 weeks. Plan: Date: 04/12/21 Initial Weight: 141.521 kg Initial BMI: 51.9 Current Weight: 128.82 kg Current BMI: 47.2 Type of Surgery: Total Volume in Band: Previous Volume: Volume Removed: Volume Added: Band Size:
== END | disposition home or self-care (01) ==
LOC: BARWHC3 12:57
PROVIDERS: ATTEND Surgery
DX: E66.01 Morbid (severe) obesity due to excess calories (principal); Z71.3 Dietary counseling and surveillance; Z68.42 Body mass index [BMI] 45.0-49.9, adult; Z98.84 Bariatric surgery status
CPT/HCPCS: 97803; 99211

== ENCOUNTER → 2021-04-26 | Outpatient (CLI) | payer BC ==
[2021-04-26 14:02] VITALS: BP 126/82; PULSE 84; TEMP 98.1; BMI 45.2
--- NOTE | 2021-04-26 15:54 | P.BASOAP ---
Subjective Progress Note Date: 04/26/21 Principal diagnosis: Dysphagia Patient comes to the bariatric center today complaining of increased nausea. Patient says she feels like liquids or having a tough time going down. She has not had any vomiting. Yesterday she took an approximately 20 ounces of liquids and some yogurt. She tried Zofran again today without any improvement in her symptoms. She comes in for evaluation. Denies fevers. No abdominal pain. Denies reflux. Remains on antiacids and as needed Zofran. The symptoms began in the last 2 days. Prior to that was doing well. Objective - Vital Signs Vital signs: Vital Signs Temp 98.1 F 04/26/21 13:58 Pulse 84 04/26/21 13:58 Resp BP 126/82 04/26/21 13:58 Pulse Ox Intake & Output 04/25/21 04/26/21 04/26/21 18:59 06:59 18:59 Weight 123.377 kg - Exam Abdomen: Soft, nontender, nondistended, incisions clean and dry Assessment/Plan (1) Morbid obesity with BMI of 50.0-59.9, adult Narrative/Plan: Patient with worsening nausea and some dysphagia. We'll provide IV hydration. Labs will be checked. CAT scan abdomen and pelvis will be ordered. Plan: Date: 04/26/21 Initial Weight: 141.521 kg Initial BMI: 51.9 Current Weight: 123.377 kg Current BMI: 45.2 Type of Surgery: Total Volume in Band: Previous Volume: Volume Removed: Volume Added: Band Size:
== END | disposition home or self-care (01) ==
LOC: BARWHC3 12:48
PROVIDERS: ATTEND Surgery
DX: E66.01 Morbid (severe) obesity due to excess calories (principal); R13.10 Dysphagia, unspecified; R11.0 Nausea; Z68.43 Body mass index [BMI] 50.0-59.9, adult
CPT/HCPCS: 99213

== ENCOUNTER → 2021-04-26 | Outpatient (CLI) | payer BC ==
[2021-04-26] MEDS: SODIUM CHLORIDE 0.9% 1,000 ML IV SCH ×2 (13:43→14:51)
[2021-04-26 13:50] VITALS: BP 105/72; PULSE 61; RESP 16; TEMP 98.2
[2021-04-26 13:53] LABS: Basophils # (A) 0.1 k/uL (0-0.2); Basophils % (A) 1 %; Eosinophils # (A) 0.2 k/uL (0-0.7); Eosinophils % (A) 3 %; HCT 44.4 % (34.0-46.0); HGB 14.7 gm/dL (11.4-16.0); Lymphocytes # (A) 1.7 k/uL (1.0-4.8); Lymphocytes % (A) 25 %; MCH 31.4 pg (25.0-35.0); MCV 95.1 fL (80.0-100.0); Mean Platelet Volume 11.1; Monocytes # (A) 0.4 k/uL (0-1.0); Monocytes % (A) 6 %; Neutrophils # (A) 4.3 k/uL (1.3-7.7); Neutrophils % (A) 63 %; Platelet Count 251 k/uL (150-450); RBC 4.67 m/uL (3.80-5.40); RDW 13.4 % (11.5-15.5); WBC 6.9 k/uL (3.8-10.6)
[2021-04-26 14:02] LABS: ALT 38 U/L (4-34); AST 35 U/L (14-36); African American GFR (CKD) >90 (>60 ml/min/1.73 sqM); Albumin 4.4 g/dL (3.5-5.0); Alkaline Phosphatase 54 U/L (38-126); Anion Gap 14 mmol/L; Blood Urea Nitrogen 9 mg/dL (7-17); Calcium 9.8 mg/dL (8.4-10.2); Carbon Dioxide 20 mmol/L (22-30); Chloride 102 mmol/L (98-107); Glucose 81 mg/dL (74-99); Non-African American GFR(CKD) >90 (>60 ml/min/1.73 sqM); Potassium 3.9 mmol/L (3.5-5.1); Sodium 136 mmol/L (137-145); Total Bilirubin 0.8 mg/dL (0.2-1.3); Total Protein 7.3 g/dL (6.3-8.2)
== END | disposition home or self-care (01) ==
LOC: PROCWHC3 13:23
PROVIDERS: ATTEND Surgery
DX: E86.0 Dehydration (principal)
CPT/HCPCS: 36415; 80053; 85025; 96360; 96361

== ENCOUNTER → 2021-04-26 | Outpatient (CLI) | payer BC ==
--- NOTE | 2021-04-26 16:32 | CT ---
EXAMINATION TYPE: CT abdomen pelvis w con DATE OF EXAM: 04/26/2021 COMPARISON: NONE HISTORY: 40-year-old female Gastric sleeve 3 weeks ago, nausea and vomiting. TECHNIQUE: Contiguous axial scanning of the abdomen and pelvis following administration of 100 ml Iso arias 300 IV contrast. Delayed images through the kidneys and coronal/sagittal reconstructions perform ed. CT DLP: 1860.6 mGycm Automated exposure control for dose reduction was used. FINDINGS: Heart normal size without pericardial effusion. Lung bases clear without pleural effusion. Liver borderline in size measuring 17.3 cm. Small amount of focal fat along the anterior falciform li gament. No biliary ductal dilatation. Portal venous system is patent. Gallbladder, adrenal glands, kidneys, spleen, and pancreas within normal limits. Post surgical changes of sleeve gastrectomy. Oral contrast is located along the sleeve. No extravasat ion of contrast is identified. No abnormal fluid collection. No dilated small bowel, free fluid, or free air. No mesenteric or retroperitoneal lymphadenopathy. Normal appendix. No significant stool burden. Circumferential bladder wall thickening may relate to nondistention. Uterus anteverted. Nonspecific 1 .2 cm nodular focus anterior to the uterine fundus shows some central fat density, possible sequela o f prior inflammation or epiploic appendagitis. Both ovaries are visualized. There is a 2.3 cm cyst of the right ovary. Pelvic lymph nodes. No abnormal fluid collection the pelvis. External iliac chain l ymph nodes measure up to 8 mm. No pelvic lymphadenopathy. Bones: No osseous destructive process. IMPRESSION: 1. STATUS POST SLEEVE GASTRECTOMY. ADMINISTERED ORAL CONTRAST IS PRESENT ALONG THE SLEEVE. NO EVIDENC E FOR LEAK, ABNORMAL INFLAMMATION, OR FLUID COLLECTION. 2. CIRCUMFERENTIAL BLADDER WALL THICKENING MAY RELATE TO NONDISTENTION. CORRELATE TO EXCLUDE CYSTITIS .
== END | disposition home or self-care (01) ==
LOC: RADCTMAIN 15:41
PROVIDERS: ATTEND Surgery
DX: K57.92 Diverticulitis of intestine, part unspecified, without perforation or abscess without bleeding (principal); Z98.84 Bariatric surgery status
CPT/HCPCS: 74177; Q9967

== ENCOUNTER → 2021-05-03 | Outpatient (CLI) | payer BC ==
[2021-05-03 14:53] VITALS: BP 126/85; PULSE 61; RESP 18; TEMP 98.2; BMI 44.9
--- NOTE | 2021-05-03 15:30 | P.BASOAP ---
Subjective Progress Note Date: 05/03/21 Principal diagnosis: Morbid obesity Patient doing better today. Came in last week for fluids. She was last seen on 04/26. She is getting over 60 ounces of liquids daily. She is getting over 70 g of protein daily. Despite that the patient had a dizzy episode at work and she had a sit down on the floor. Denies pain. Says that she is gradually been feeling better every day. She is due for one month labs. Objective - Vital Signs Vital signs: Vital Signs Temp 98.2 F 05/03/21 14:51 Pulse 61 05/03/21 14:51 Resp 18 05/03/21 14:51 BP 126/85 05/03/21 14:51 Pulse Ox Intake & Output 05/02/21 05/03/21 05/03/21 18:59 06:59 18:59 Weight 122.47 kg - Exam Abdomen: Soft, nontender, nondistended Assessment/Plan (1) Morbid obesity with BMI of 50.0-59.9, adult Narrative/Plan: Patient doing better at this time. Recommend that she stay off work until next Sunday. At that time recommended she do shorter shifts maybe 4 hours per day for 1 week. We'll check one month labs. Recheck here in the office 1 month. Plan: Date: 05/03/21 Initial Weight: 141.521 kg Initial BMI: 51.9 Current Weight: 122.47 kg Current BMI: 44.9 Type of Surgery: Total Volume in Band: Previous Volume: Volume Removed: Volume Added: Band Size:
[2021-05-03 15:46] LABS: HGB 14.9 gm/dL (11.4-16.0); MCH 32.1 pg (25.0-35.0); MCHC 33.8 g/dL (31.0-37.0); MCV 94.8 fL (80.0-100.0); Platelet Count 209 k/uL (150-450); RBC 4.64 m/uL (3.80-5.40); RDW 13.8 % (11.5-15.5); WBC 7.3 k/uL (3.8-10.6)
[2021-05-04 15:36] LABS: Albumin 4.3 g/dL (3.80-4.90); Albumin/Globulin Ratio 1.59 (1.60-3.17); Anion Gap 17.4 mmol/L (4.00-12.00); Calcium 9.6 mg/dL (8.7-10.3); Carbon Dioxide 20.6 mmol/L (21.6-31.8); Folate, Serum 15.6 ng/mL; Globulin 2.7 g/dL (1.6-3.3); Non-African American GFR(CKD) 115.6 (60.0-200.0); Potassium 3.7 mmol/L (3.5-5.5); Total Bilirubin 0.6 mg/dL (0.2-1.2)
== END | disposition home or self-care (01) ==
LOC: BARWHC3 14:22
PROVIDERS: ATTEND Surgery
DX: E66.01 Morbid (severe) obesity due to excess calories (principal); K90.89 Other intestinal malabsorption; E55.9 Vitamin D deficiency, unspecified
CPT/HCPCS: 36415; 80053; 82306; 82607; 82746; 83540; 84425; 85027; 97803; 99211

== ENCOUNTER → 2021-06-14 | Outpatient (CLI) | payer BC ==
[2021-06-14 13:44] VITALS: BP 111/72; PULSE 71; TEMP 98.1; BMI 42.9
--- NOTE | 2021-06-14 13:45 | P.BASOAP ---
Subjective Progress Note Date: 06/14/21 Principal diagnosis: Morbid obesity 05/03. No further episodes of dizziness. Her 1 month labs revealed low iron and vitamin B1. She is taking a multivitamin, iron, and B12. She thought that the low value was or B12. Has occasional episodes of dysphagia. Has regurgitation maybe once per week. She is taking her proton pump inhibitor every other day with no heartburn symptoms. Denies pain. Objective - Vital Signs Vital signs: Vital Signs Temp 98.1 F 06/14/21 13:36 Pulse 71 06/14/21 13:36 Resp BP 111/72 06/14/21 13:36 Pulse Ox Intake & Output 06/13/21 06/14/21 06/14/21 18:59 06:59 18:59 Weight 117.027 kg - Exam Abdomen: Soft, nontender, nondistended Assessment/Plan (1) Morbid obesity with BMI of 50.0-59.9, adult Narrative/Plan: Patient doing well at this time. Continue dietary and exercise regimen. Continue every other day and asked. We'll begin taking vitamin B1 supplementation. Follow-up 4-6 weeks. Check 3 months labs at that time. Plan: Date: 06/14/21 Initial Weight: 141.521 kg Initial BMI: 51.9 Current Weight: 117.027 kg Current BMI: 42.9 Type of Surgery: Total Volume in Band: Previous Volume: Volume Removed: Volume Added: Band Size:
== END ==
LOC: BARWHC3 13:22
PROVIDERS: ATTEND Surgery
DX: E66.01 Morbid (severe) obesity due to excess calories (principal); Z68.41 Body mass index [BMI] 40.0-44.9, adult
CPT/HCPCS: 99211

== ENCOUNTER → 2021-08-02 | Outpatient (CLI) | payer BC ==
[2021-08-02 14:25] VITALS: BP 138/79; PULSE 79; TEMP 98.1; BMI 40.1
--- NOTE | 2021-08-02 14:40 | P.BASOAP ---
Subjective Progress Note Date: 08/02/21 Principal diagnosis: Morbid obesity Patient returns for 1 month visit. Doing well since last visit. She has had some constipation doing better with MiraLAX. She is back to taking daily antiacids and with her daily antiacids has no heartburn. Had some dysphagia with steak recently. She has lost 11 pounds since her last visit. Objective - Vital Signs Vital signs: Vital Signs Temp 98.1 F 08/02/21 14:23 Pulse 79 08/02/21 14:23 Resp BP 138/79 08/02/21 14:23 Pulse Ox Intake & Output 08/01/21 08/02/21 08/02/21 18:59 06:59 18:59 Weight 109.316 kg - Exam Abdomen: Soft, nontender, nondistended Assessment/Plan (1) Morbid obesity with BMI of 50.0-59.9, adult Narrative/Plan: Continue dietary and exercise regimen. Continue MiraLAX for constipation symptoms. Continue daily antiacids. We'll check three-month labs at this time. Follow-up 4-6 weeks. Plan: Date: 08/02/21 Initial Weight: 141.521 kg Initial BMI: 51.9 Current Weight: 109.316 kg Current BMI: 40.1 Type of Surgery: Total Volume in Band: Previous Volume: Volume Removed: Volume Added: Band Size:
[2021-08-02 15:55] LABS: HGB 13.1 gm/dL (11.4-16.0); WBC 7.5 k/uL (3.8-10.6)
[2021-08-02 15:56] LABS: HCT 40.6 % (34.0-46.0); MCH 31.9 pg (25.0-35.0); MCHC 32.2 g/dL (31.0-37.0); MCV 99.2 fL (80.0-100.0); Mean Platelet Volume 8.8; Platelet Count 252 k/uL (150-450); RDW 12.7 % (11.5-15.5)
[2021-08-03 00:32] LABS: African American GFR (CKD) 133.2 (60.0-200.0); Albumin 4.1 g/dL (3.8-4.9); Albumin/Globulin Ratio 1.8 (1.60-3.17); Anion Gap 12.1 mmol/L (10.00-18.00); BUN/Creat Ratio 17.2 Ratio (12.00-20.00); Blood Urea Nitrogen 10.3 mg/dL (9.0-27.0); Calcium 9.4 mg/dL (8.7-10.3); Carbon Dioxide 23.8 mmol/L (20.0-27.5); Folate, Serum 17.1 ng/mL (4.40-31.00); Globulin 2.3 g/dL (1.6-3.3); Non-African American GFR(CKD) 114.9 (60.0-200.0); Potassium 4.1 mmol/L (3.5-5.5); Total Bilirubin 0.5 mg/dL (0.30-1.20); Total Protein 6.4 g/dL (6.2-8.2)
== END ==
LOC: BARWHC3 13:27
PROVIDERS: ATTEND Surgery
DX: E66.01 Morbid (severe) obesity due to excess calories (principal); Z68.41 Body mass index [BMI] 40.0-44.9, adult; Z71.3 Dietary counseling and surveillance
CPT/HCPCS: 36415; 80053; 82306; 82607; 82746; 83540; 84425; 85027; 97803; 99211

== ENCOUNTER → 2021-09-20 | Outpatient (CLI) | payer BC ==
[2021-09-20 14:11] VITALS: BP 126/81; PULSE 72; RESP 16; TEMP 97.1; BMI 38.4
--- NOTE | 2021-09-20 15:12 | P.BASOAP ---
Subjective Progress Note Date: 09/20/21 Principal diagnosis: Morbid obesity Patient returns for reevaluation. She was last seen on 08/02. She had 3 months labs checked at that time. Vitamin D was 22 and iron was 45. Patient has done well since her last visit. Lost 18 pounds. Exercising frequently. Goes to the gym 4 days a week and exercises for about 2 hours each time. Constipation well controlled with MiraLAX. No GERD symptoms with taking omeprazole daily. No vomiting, no pain. Objective - Vital Signs Vital signs: Vital Signs Temp 97.1 F L 09/20/21 14:06 Pulse 72 09/20/21 14:06 Resp 16 09/20/21 14:06 BP 126/81 09/20/21 14:06 Pulse Ox Intake & Output 09/19/21 09/20/21 09/20/21 18:59 06:59 18:59 Weight 104.78 kg - Exam Abdomen: Soft, nontender, nondistended Assessment/Plan (1) Morbid obesity with BMI of 50.0-59.9, adult Narrative/Plan: Patient doing well today. We'll provide refill for omeprazole. Continue dietary and exercise regimen. Follow-up 6 weeks. Check 6 month labs at that time. Plan: Date: 09/20/21 Initial Weight: 141.521 kg Initial BMI: 51.9 Current Weight: 104.78 kg Current BMI: 38.4 Type of Surgery: Total Volume in Band: Previous Volume: Volume Removed: Volume Added: Band Size:
== END ==
LOC: BARWHC3 13:55
PROVIDERS: ATTEND Surgery
DX: E66.01 Morbid (severe) obesity due to excess calories (principal); Z68.38 Body mass index [BMI] 38.0-38.9, adult
CPT/HCPCS: 99211

== ENCOUNTER → 2022-03-14 | Outpatient (CLI) | payer BC ==
[2022-03-14 14:48] VITALS: BP 115/70; PULSE 71; RESP 16; TEMP 98.2; BMI 34.6
--- NOTE | 2022-03-14 15:58 | P.BASOAP ---
Subjective Progress Note Date: 03/14/22 Principal diagnosis: Morbid obesity Patient last seen on 09/20. Patient states her diet is very restricted at this time and she can only tolerate certain foods without feelings of nausea and occasional vomiting. Still takes antacids daily. No heartburn symptoms unless she misses doses. She has lost significant weight since her last visit. She says a lot of the foods that she used to eat she no longer enjoys. Patient is due for one year labs. She has been taking her supplemental iron and vitamin D. She is overdue for repeat blood work. Objective - Vital Signs Vital signs: Vital Signs Temp 98.2 F 03/14/22 14:44 Pulse 71 03/14/22 14:44 Resp 16 03/14/22 14:44 BP 115/70 03/14/22 14:44 Pulse Ox FiO2 Intake & Output 03/13/22 03/14/22 03/14/22 18:59 06:59 18:59 Weight 94.347 kg - Exam Abdomen: Soft, nontender, nondistended Assessment/Plan (1) Morbid obesity with BMI of 50.0-59.9, adult Narrative/Plan: Patient 1 year out from prior sleeve gastrectomy. Patient has done well with her weight loss. Unfortunately she is having difficulties with finding foods that she likes to eat. She says the taste of many foods are normal. Cherelle will to her. She does have dysphagia at times to certain foods. Continue antiacids. We'll meet with dietary today. If symptoms persist or worsen we discussed the option of EGD. We'll check one year labs at this time. Follow-up 3 months. Plan: Date: 03/14/22 Initial Weight: 141.521 kg Initial BMI: 51.9 Current Weight: 94.347 kg Current BMI: 34.6 Type of Surgery: Vertical Sleeve Gastrectomy Total Volume in Band: Previous Volume: Volume Removed: Volume Added: Band Size:
[2022-03-14 22:21] LABS: HCT 40.7 % (37.2-46.3); HGB 13.3 g/dL (12.0-15.0); MCH 31.4 pg (27.0-32.0); MCHC 32.7 g/dL (32.0-37.0); MCV 96.2 fL (80.0-97.0); Mean Platelet Volume 11.3 fL (9.5-12.2); NRBC Per 100 WBC 0 /100 WBCS (0.0-0.0); Platelet Count 267 X 10*3/uL (140-440); RBC 4.23 X 10*6/uL (4.10-5.20); RDW 12.4 % (11.5-14.5); WBC 7.67 X 10*3/uL (4.50-10.00)
[2022-03-14 23:59] LABS: African American GFR (CKD) 126.8 (60.0-200.0); Albumin 4.2 g/dL (3.8-4.9); Albumin/Globulin Ratio 1.64 (1.60-3.17); Anion Gap 11.4 mmol/L (10.00-18.00); BUN/Creat Ratio 17.99 Ratio (12.00-20.00); Blood Urea Nitrogen 12.5 mg/dL (9.0-27.0); Calcium 9.3 mg/dL (8.7-10.3); Carbon Dioxide 24.2 mmol/L (20.0-27.5); Globulin 2.6 g/dL (1.6-3.3); Non-African American GFR(CKD) 109.4 (60.0-200.0); Potassium 4.3 mmol/L (3.5-5.5); Total Bilirubin 0.4 mg/dL (0.30-1.20); Total Protein 6.7 g/dL (6.2-8.2)
== END ==
LOC: BARWHC3 13:51
PROVIDERS: ATTEND Surgery
DX: E66.01 Morbid (severe) obesity due to excess calories (principal); Z71.3 Dietary counseling and surveillance; K90.89 Other intestinal malabsorption; E55.9 Vitamin D deficiency, unspecified; Z68.34 Body mass index [BMI] 34.0-34.9, adult; Z98.84 Bariatric surgery status
CPT/HCPCS: 80053; 82306; 82607; 82746; 83540; 84425; 85027; 97803; 99211

== ENCOUNTER → 2022-06-20 | Outpatient (CLI) | payer BC ==
[2022-06-20 13:47] VITALS: BP 117/75; PULSE 57; RESP 16; TEMP 98.2; BMI 32.8
--- NOTE | 2022-06-20 14:04 | P.BASOAP ---
Subjective Progress Note Date: 06/20/22 Principal diagnosis: Morbid obesity Patient returns for recheck. She was last seen in March. She had her 1 year labs checked which showed her iron was slightly low. She was started on iron supplementation. She continues to take vitamin D supplementation 50,000 units once weekly. She needs a refill for that. Taking omeprazole 20 mg daily. She tried going to every other day but had some breakthrough reflux symptoms. No nausea or vomiting any longer. Tolerating diet. 11 pound weight loss since last visit. Patient is having a rash under her pannus and also thinks her extra skin in her left thigh region is causing knee pain. She is working 12 hour shifts often 7 days per week and has not had time for exercise lately. Objective - Vital Signs Vital signs: Vital Signs Temp 98.2 F 06/20/22 13:45 Pulse 57 L 06/20/22 13:45 Resp 16 06/20/22 13:45 BP 117/75 06/20/22 13:45 Pulse Ox FiO2 Intake & Output 06/19/22 06/20/22 06/20/22 18:59 06:59 18:59 Weight 89.358 kg - Exam Abdomen: Soft, nontender, nondistended Assessment/Plan (1) Morbid obesity with BMI of 50.0-59.9, adult Narrative/Plan: Patient doing well at this time. Continue dietary regimen. Increase exercise as work hours allow. We'll refill prescription for vitamin D. We'll also: A prescription for nystatin powder for the patient's rash. Will plan follow-up visit in 3 months. We'll check repeat labs at that time. Plan: Date: 06/20/22 Initial Weight: 141.521 kg Initial BMI: 51.9 Current Weight: 89.358 kg Current BMI: 32.8 Type of Surgery: Total Volume in Band: Previous Volume: Volume Removed: Volume Added: Band Size:
== END ==
LOC: BARWHC3 13:34
PROVIDERS: ATTEND Surgery
DX: E66.01 Morbid (severe) obesity due to excess calories (principal); Z68.32 Body mass index [BMI] 32.0-32.9, adult
CPT/HCPCS: 99211

== ENCOUNTER → 2022-09-19 | Outpatient (CLI) | payer BC ==
[2022-09-19 14:34] VITALS: BP 127/83; PULSE 69; RESP 16; TEMP 97.7; BMI 32.3
--- NOTE | 2022-09-19 17:11 | P.BASOAP ---
Subjective Progress Note Date: 09/19/22 Principal diagnosis: Morbid obesity 42-year-old female returns for recheck. She was last seen in June. She is taking antacids daily. She would like to try been asked it and powder apparently the pharmacy did not provide that last visit. She has lost 3 pounds. She is working out more regularly at the gym now. Objective - Vital Signs Vital signs: Vital Signs Temp 97.7 F 09/19/22 14:31 Pulse 69 09/19/22 14:31 Resp 16 09/19/22 14:31 BP 127/83 09/19/22 14:31 Pulse Ox FiO2 Intake & Output 09/18/22 09/19/22 09/19/22 18:59 06:59 18:59 Weight 87.997 kg - Exam Abdomen: Soft, nontender, nondistended Assessment/Plan (1) Morbid obesity with BMI of 50.0-59.9, adult Narrative/Plan: 6-year-old female doing well after previous sleeve gastrectomy. Continue daily antiacid therapy. We'll send prescription for Prilosec and nystatin powder. Follow-up in March. Plan: Date: 09/19/22 Initial Weight: 141.521 kg Initial BMI: 51.9 Current Weight: 87.997 kg Current BMI: 32.3 Type of Surgery: Vertical Sleeve Gastrectomy Total Volume in Band: Previous Volume: Volume Removed: Volume Added: Band Size:
== END ==
LOC: BARWHC3 14:22
PROVIDERS: ATTEND Surgery
DX: Z48.815 Encounter for surgical aftercare following surgery on the digestive system (principal); Z98.84 Bariatric surgery status; E66.01 Morbid (severe) obesity due to excess calories; Z68.32 Body mass index [BMI] 32.0-32.9, adult
CPT/HCPCS: 99211

== ENCOUNTER → 2023-03-20 | Outpatient (CLI) | payer BC ==
[2023-03-20 21:17] LABS: ALT 13 U/L (8-44); AST 15 U/L (13-35); Albumin 4.4 d/dL (3.8-4.9); Albumin/Globulin Ratio 1.69 Ratio (1.60-3.17); Alkaline Phosphatase 55 U/L (41-126); BUN/Creat Ratio 17.12 Ratio (12.00-20.00); Blood Urea Nitrogen 13.7 mg/dL (9.0-27.0); Calcium 9.1 mg/dL (8.7-10.3); Carbon Dioxide 24.2 mmol/L (21.6-31.8); Chloride 105 mmol/L (96-109); Globulin 2.6 d/dL (1.6-3.3); Glucose 77 mg/dL (70-110); Iron 32 UG/DL (50-170); Potassium 4.5 mmol/L (3.5-5.5); Sodium 139 mmol/L (135-145); Total Bilirubin 0.3 mg/dL (0.3-1.2)
[2023-03-21 01:29] LABS: HGB 13.7 d/dL (12.0-15.0); MCH 32.8 pg (27.0-32.0); MCHC 32.6 d/dL (32.0-37.0); MCV 100.5 FL (80.0-97.0); Mean Platelet Volume 12.3 FL (9.5-12.2); NRBC Per 100 WBC 0 X 10*3/uL (0.00-0.01); Platelet Count 226 X 10*3/uL (140-440); RBC 4.18 X 10*6/uL (4.10-5.20); RDW 12.7 % (11.5-14.5)
== END | disposition home or self-care (01) ==
LOC: LABWHC1 15:33
PROVIDERS: ATTEND Surgery
DX: E55.9 Vitamin D deficiency, unspecified (principal); E66.01 Morbid (severe) obesity due to excess calories; K90.89 Other intestinal malabsorption
CPT/HCPCS: 36415; 80053; 82306; 82607; 82746; 83540; 84425; 85027

== ENCOUNTER → 2023-03-20 | Outpatient (CLI) | payer BC ==
[2023-03-20 15:09] VITALS: BP 121/74; PULSE 55; TEMP 98.1; BMI 31.2
--- NOTE | 2023-03-20 17:02 | P.BASOAP ---
Subjective Progress Note Date: 03/20/23 Principal diagnosis: Morbid obesity Patient returns for recheck. Last seen in September. Patient is due for annual labs. Mild GERD if she eats or drinks too late. Symptoms well controlled with daily Prilosec. Has been exercising less recently because of hurting her knee. She is down 6 pounds. Objective - Vital Signs Vital signs: Vital Signs Temp 98.1 F 03/20/23 15:06 Pulse 55 L 03/20/23 15:06 Resp BP 121/74 03/20/23 15:06 Pulse Ox FiO2 Intake & Output 03/19/23 03/20/23 03/20/23 18:59 06:59 18:59 Weight 85.275 kg - Exam Abdomen: Soft, nontender, nondistended Assessment/Plan (1) Morbid obesity with BMI of 50.0-59.9, adult Narrative/Plan: Patient doing well at this time. Continue dietary and exercise regimen. Continue daily antiacid therapy. Check 2 year labs. Follow-up 6-12 months. Plan: Date: 03/20/23 Initial Weight: 141.521 kg Initial BMI: 51.9 Current Weight: 85.275 kg Current BMI: 31.2 Type of Surgery: Total Volume in Band: Previous Volume: Volume Removed: Volume Added: Band Size:
== END ==
LOC: BARWHC3 14:41
PROVIDERS: ATTEND Surgery
DX: E66.01 Morbid (severe) obesity due to excess calories (principal); Z71.3 Dietary counseling and surveillance; Z68.31 Body mass index [BMI] 31.0-31.9, adult
CPT/HCPCS: 99211

== ENCOUNTER → 2024-03-18 | Outpatient (CLI) | payer BC ==
[2024-03-18 14:52] VITALS: BP 131/83; PULSE 105; RESP 16; TEMP 98.3; BMI 33.9
--- NOTE | 2024-03-18 16:21 | P.BASOAP ---
Subjective Progress Note Date: 03/18/24 Principal diagnosis: Morbid obesity Patient returns for recheck. Last seen 1 year ago. Remains on antiacids. No GERD or vomiting issues while taking antiacids. Recently has had some pain superior to the umbilicus. Symptoms started about 2 months ago. Symptoms are intermittent and seem to be related to motion rather than eating. Happening more frequently however. She has gained 16 pounds since her last visit. She does not feel any lumps in that area. She is due for annual blood work. Remains on iron after previous labs showed low iron. Patient says she had some emotional issues with a loss in the family and developed some bad habits that she has recently gotten away from. She is doing better now. She just recently started exercising regularly again as well. Objective - Vital Signs Vital signs: Vital Signs Temp 98.3 F 03/18/24 14:50 Pulse 105 H 03/18/24 14:50 Resp 16 03/18/24 14:50 BP 131/83 03/18/24 14:50 Pulse Ox FiO2 Intake & Output 03/17/24 03/18/24 03/18/24 18:59 06:59 18:59 Weight 92.533 kg - Exam Abdomen: Soft, mild tenderness supraumbilical, no palpable mass or hernia Assessment/Plan (1) Morbid obesity with BMI of 50.0-59.9, adult Narrative/Plan: 43-year-old female doing well after prior sleeve gastrectomy. Continue antiacids. Check annual labs. Patient's abdominal discomfort could be on the basis of small hernia difficult to palpate on exam. We discussed the options of CAT scan to evaluate the fascia. She would rather hold off at this time. Patient will return for recheck in 3 months. Will repeat exam at that time. Plan: Date: 03/18/24 Initial Weight: 141.521 kg Initial BMI: 51.9 Current Weight: 92.533 kg Current BMI: 33.9 Type of Surgery: Vertical Sleeve Gastrectomy Total Volume in Band: Previous Volume: Volume Removed: Volume Added: Band Size:
[2024-03-19 02:42] LABS: HCT 42.5 % (37.2-46.3); HGB 13.8 g/dL (12.0-15.0); MCH 32.5 pg (27.0-32.0); MCHC 32.5 g/dL (32.0-37.0); Mean Platelet Volume 11.2 FL (9.5-12.2); NRBC Per 100 WBC 0 X 10*3/uL (0.00-0.01); Platelet Count 287 X 10*3/uL (140-440); RBC 4.25 X 10*6/uL (4.10-5.20); WBC 7.81 X 10*3/uL (4.50-10.00)
[2024-03-19 03:46] LABS: ALT 11 U/L (8-44); AST 15 U/L (13-35); Albumin 4.6 g/dL (3.8-4.9); Albumin/Globulin Ratio 1.77 Ratio (1.60-3.17); Alkaline Phosphatase 63 U/L (41-126); BUN/Creat Ratio 19.12 Ratio (12.00-20.00); Blood Urea Nitrogen 15.3 mg/dL (9.0-27.0); Calcium 9.3 mg/dL (8.7-10.3); Carbon Dioxide 24.3 mmol/L (21.6-31.8); Chloride 104 mmol/L (96-109); Globulin 2.6 g/dL (1.6-3.3); Glucose 80 mg/dL (70-110); Iron 27 UG/DL (50-170); Potassium 4.3 mmol/L (3.5-5.5); Sodium 141 mmol/L (135-145); Total Bilirubin 0.3 mg/dL (0.3-1.2); Total Protein 7.2 g/dL (6.2-8.2)
== END ==
LOC: BARWHC3 14:43
PROVIDERS: ATTEND Surgery
DX: E66.01 Morbid (severe) obesity due to excess calories (principal); K90.89 Other intestinal malabsorption; E55.9 Vitamin D deficiency, unspecified; Z90.3 Acquired absence of stomach [part of]; Z98.84 Bariatric surgery status; Z68.43 Body mass index [BMI] 50.0-59.9, adult
CPT/HCPCS: 80053; 82306; 82607; 82746; 83540; 84425; 85027; 99211

== ENCOUNTER → 2024-06-17 | Outpatient (CLI) | payer BC ==
[2024-06-17 14:37] VITALS: BP 116/79; PULSE 80; RESP 16; TEMP 97.8; BMI 35.6
--- NOTE | 2024-06-17 15:47 | P.BASOAP ---
Subjective Progress Note Date: 06/17/24 Principal diagnosis: 6 to 12 months for recheck. Patient returns for recheck. Underwent sleeve gastrectomy in March 2021. Last seen this past March. Patient says she still is not exercising much. Making bad choices. Still has moderate restriction from the sleeve gastrectomy. Patient states she is working anywhere from 6 to 7 days/week 10 hours a day. She is sitting more than she used to at work. She was having pain above the umbilicus but that has resolved. No heartburn. Has had some weight gain Objective - Vital Signs Vital signs: Vital Signs Temp 97.8 F 06/17/24 14:33 Pulse 80 06/17/24 14:33 Resp 16 06/17/24 14:33 BP 116/79 06/17/24 14:33 Pulse Ox FiO2 Intake & Output 06/16/24 06/17/24 06/17/24 18:59 06:59 18:59 Weight 97.069 kg - Exam Abdomen: Soft, nontender, nondistended Assessment/Plan (1) Morbid obesity with BMI of 50.0-59.9, adult Narrative/Plan: Overall patient doing fairly well. She has gained some weight. She is over 3 years out from her sleeve however. Continue working on increasing exercise as much as possible. Monitor caloric intake. Follow-up 6 months. Plan: Date: 06/17/24 Initial Weight: 141.521 kg Initial BMI: 51.9 Current Weight: 97.069 kg Current BMI: 35.6 Type of Surgery: Vertical Sleeve Gastrectomy Total Volume in Band: Previous Volume: Volume Removed: Volume Added: Band Size:
== END | disposition home or self-care (01) ==
LOC: BARWHC3 14:23
PROVIDERS: ATTEND Surgery
CPT/HCPCS: 99211

== ENCOUNTER → 2024-12-16 | Outpatient (CLI) | payer BC ==
[2024-12-16 14:39] VITALS: BP 137/86; PULSE 74; TEMP 97.2; BMI 36.9
--- NOTE | 2024-12-16 15:04 | P.BASOAP ---
Subjective Progress Note Date: 12/16/24 Principal diagnosis: Morbid obesity Patient returns for recheck. Doing well since last visit. Unfortunately her weight did go up 8 pounds. Her job hours decreased and she actually took a second job. Despite that however she is able to go to the gym 4 times per week. Says her daily caloric intake is anywhere from 12 100-15 100. Takes antiacids once daily for reflux which is well-controlled. Surgery was almost 4 years ago. Still feels restricted. Usually not hungry at all. Objective - Vital Signs Vital signs: Vital Signs Temp 97.2 F L 12/16/24 14:34 Pulse 74 12/16/24 14:34 Resp BP 137/86 12/16/24 14:34 Pulse Ox FiO2 Intake & Output 12/15/24 12/16/24 12/16/24 18:59 06:59 18:59 Weight 100.698 kg - Exam Abdomen: Soft, nontender, nondistended Assessment/Plan (1) Morbid obesity with BMI of 50.0-59.9, adult Narrative/Plan: Patient doing well at this time. Continue daily antiacids. Check annual lab work and will include TSH to evaluate for potential hypothyroidism as an explanation for her recent weight gain. Continue monitoring caloric intake. Continue dietary and exercise regimen. Follow-up 6 months. Plan: Date: 12/16/24 Initial Weight: 141.521 kg Initial BMI: 51.9 Current Weight: 100.698 kg Current BMI: 36.9 Type of Surgery: Total Volume in Band: Previous Volume: Volume Removed: Volume Added: Band Size:
[2024-12-16 18:12] LABS: HCT 41.1 % (37.2-46.3); HGB 13.4 g/dL (12.0-15.0); MCH 31.3 pg (27.0-32.0); MCHC 32.6 g/dL (32.0-37.0); Mean Platelet Volume 11.1 FL (9.5-12.2); NRBC Per 100 WBC 0 X 10*3/uL (0.00-0.01); Platelet Count 276 X 10*3/uL (140-440); RBC 4.28 X 10*6/uL (4.10-5.20); RDW 11.9 % (11.5-14.5)
[2024-12-16 18:41] LABS: BUN/Creat Ratio 17.14 Ratio (12.00-20.00); Carbon Dioxide 25.9 mmol/L (21.6-31.8); Chloride 104 mmol/L (96-109); Glucose 86 mg/dL (70-110); Iron 45 UG/DL (50-170); Potassium 4.2 mmol/L (3.5-5.5); Sodium 137 mmol/L (135-145)
[2024-12-16 18:42] LABS: ALT 11 U/L (8-44); AST 12 U/L (13-35); Albumin 4.2 g/dL (3.8-4.9); Albumin/Globulin Ratio 1.62 Ratio (1.60-3.17); Alkaline Phosphatase 61 U/L (41-126); Calcium 9.2 mg/dL (8.7-10.3); Globulin 2.6 g/dL (1.6-3.3); Total Bilirubin 0.2 mg/dL (0.3-1.2); Total Protein 6.8 g/dL (6.2-8.2)
== END ==
LOC: BARWHC3 14:19
PROVIDERS: ATTEND Surgery
DX: E66.01 Morbid (severe) obesity due to excess calories (principal); Z68.36 Body mass index [BMI] 36.0-36.9, adult
CPT/HCPCS: 80053; 82306; 82607; 82746; 83540; 84425; 84443; 85027; 99211